=== PATIENT | female | born 1940 | race Caucasian/White ===

== ENCOUNTER 2018-04-18 01:39 | Outpatient (CLI) | payer MEDICARE, OTHER, SELFPAY ==
[2018-04-18 08:33] LABS: Anion Gap 7.5 mmol/L (3-11); BUN 23 mg/dL (7-18); CO2 29.5 mmol/L (21.0-32.0); CREATININE 0.71 mg/dL (0.55-1.02); Calcium 8.5 mg/dL (8.5-10.1); Chloride 104 mmol/L (98-107); Cholesterol 117 mg/dL (50-200); Glucose 107 mg/dL (70-100); HDL Cholesterol 72 mg/dL (40-60); LDL CHOLESTEROL 37 mg/dL (<100); Potassium 4.1 mmol/L (3.5-5.1); Sodium 141 mmol/L (136-145); Triglyceride 77 mg/dL (30-150)
== END 2018-04-18 01:59 ==
PROVIDERS: PCP Internal Medicine; Visit Provider Internal Medicine
DX: I10 Essential (primary) hypertension (principal)
CPT/HCPCS: 36415; 80048; 80061; 83721

== ENCOUNTER 2018-10-17 12:06 | Outpatient (REF) | payer MEDICARE, OTHER, SELFPAY ==
[2018-10-17 19:27] LABS: HCT 40.1 % (36.0-46.0); HGB 13.3 g/dL (12.0-15.5); Mean Corp. HGB Concentration 33.2 g/dL (32.0-36.0); Mean Corpuscular Hemoglobin 30.6 pg (27.0-33.0); Mean Corpuscular Volume 92.2 fL (80-95); Mean Platelet Volume 11.6 fL (8.0-11.0); Platelet Count 254 x1000/uL (130-400); RBC 4.35 m/cumm (4.00-5.20); RBC Distribution Width 14.8 % (11.7-14.6); White Blood Cell Count 9.98 k/cumm (4.4-10.8)
[2018-10-17 19:50] LABS: ALT 53 U/L (12-78); AST 30 U/L (15-37); Albumin 3.8 g/dL (3.4-5.0); Alkaline Phosphatase 56 U/L (46-116); Anion Gap 9.8 mmol/L (3-11); BUN 17 mg/dL (7-18); Bilirubin, Total 0.5 mg/dL (0.2-1.0); C-Reactive Protein 0.35 mg/dL (0.0-0.3); CO2 28.2 mmol/L (21.0-32.0); Calcium 9.3 mg/dL (8.5-10.1); Chloride 98 mmol/L (98-107); Glucose 103 mg/dL (70-100); Potassium 3.9 mmol/L (3.5-5.1); Sodium 136 mmol/L (136-145); TSH 3.15 uIU/mL (0.358-3.74); Total Protein 7.3 g/dL (6.4-8.2)
[2018-10-17 20:36] LABS: Vitamin B12 752 pg/mL (193-986)
[2018-10-19 14:07] LABS: ANA Interpretation Positive (NEGAT); ANA Titer Pattern 1:160 Speckled
== END 2018-10-17 12:26 ==
LOC: LBN 12:06
PROVIDERS: PCP Internal Medicine; Visit Provider Internal Medicine
DX: F41.9 Anxiety disorder, unspecified (principal); I10 Essential (primary) hypertension
CPT/HCPCS: 80053; 85027; 82607; 84443; 86038; 86140

== ENCOUNTER 2019-12-25 07:54 | Emergency (ER) | payer MEDICARE, OTHER, SELFPAY ==
--- NOTE | 2019-12-25 08:10 | NUR.NOTE ---
states does not want to come to ER---I have a appointment with Dr chani archer and I'm supposed to be checked out today'--Does not know where or what she is supposed to be doing today---after calling pcp office it was determined that she was scheduled for a stress test.---Taken to DI.Nursing Note:
--- NOTE | 2019-12-25 08:10 | NUR.NOTE ---
Nursing Note: At the request of Benjamin Shaffer RN; I called ARANZA (spoke with Criss) and the patient has an appt. with Dr. Shelton tomorrow at 12:45. She also does have a stress test scheduled for today (per CLARA Mcgraw). CLAUDIA Strickland went to take patient to when someone from came to tell her that the stress test was cancelled. Nova Diggs.
== END 2019-12-25 08:11 | disposition other institution (70) ==
LOC: ER 08:10
PROVIDERS: PCP Internal Medicine
DX: Z53.21 Procedure and treatment not carried out due to patient leaving prior to being seen by health care provider (principal)

== ENCOUNTER 2019-12-31 08:26 | Outpatient (CLI) | payer MEDICARE, OTHER, SELFPAY ==
--- NOTE | 2019-12-31 09:41 | DI.RAD_ITS ---
EXAM: XR HIP RT COMPLETE AP PELVIS CLINICAL HISTORY: RT HIP PAIN, M25.551. TECHNIQUE: 2D digital imaging was performed. COMPARISON: No exams were available for comparison FINDINGS: BONES: No acute fracture is present. No bony destructive lesion is seen. JOINTS: No dislocation present. SOFT TISSUE: Vascular calcifications are present. IMPRESSION: Unremarkable radiographs of the right hip. Unremarkable radiographs of the pelvis. DATA REPOSITORY: RADIATION DOSE DELIVERED:
== END 2019-12-31 08:46 ==
PROVIDERS: PCP Internal Medicine; Visit Provider Internal Medicine
DX: M25.551 Pain in right hip (principal)
CPT/HCPCS: 73502

== ENCOUNTER 2020-01-31 01:46 | Outpatient (CLI) | payer MEDICARE, OTHER, SELFPAY | END 2020-01-31 02:06 | PROVIDERS: PCP Internal Medicine; Visit Provider Internal Medicine | DX: M70.61 Trochanteric bursitis, right hip (principal); I10 Essential (primary) hypertension | CPT/HCPCS: 99203; 99214 ==

== ENCOUNTER 2020-02-08 01:47 | Outpatient (CLI) | payer MEDICARE, OTHER, SELFPAY ==
[2020-02-08 07:16] LABS: HCT 43.6 % (36.0-46.0); HGB 14.1 g/dL (11.2-15.7); MCH 30.2 pg (27.0-33.0); MCHC 32.3 % (32.0-36.0); MCV 93.4 fL (80-95); MPV 10.8 fL (8.0-11.0); Platelet Count 255 10^3/uL (130-400); RBC 4.67 10^6/uL (3.93-5.22); RDW 13.6 % (11.7-14.6); RDW-SD 46.8 fL
[2020-02-08 08:24] LABS: ALT 35 U/L (14-59); AST 21 U/L (15-37); Albumin 3.5 g/dL (3.4-5.0); Alkaline Phosphatase 62 U/L (46-116); Anion Gap 9.6 mmol/L (3-11); BUN 16 mg/dL (7-18); Bilirubin, Total 0.5 mg/dL (0.2-1.0); CO2 28.4 mmol/L (21.0-32.0); CREATININE 0.84 mg/dL (0.55-1.02); Calcium 9.1 mg/dL (8.5-10.1); Calculated LDL 50 mg/dL (<100); Chloride 104 mmol/L (98-107); Cholesterol 132 mg/dL (<200); Glucose 103 mg/dL (74-106); HDL Cholesterol 58 mg/dL (40-60); Potassium 3.8 mmol/L (3.5-5.1); Sodium 142 mmol/L (136-145); TSH 5.18 uIU/mL (0.36-3.74); Total Protein 7.2 g/dL (6.4-8.2); Triglyceride 122 mg/dL (<150); Vitamin B12 695 pg/mL (193-986)
[2020-02-08 08:27] LABS: ESR 40 mm/hr (0-30)
== END 2020-02-08 02:07 ==
PROVIDERS: PCP Internal Medicine; Visit Provider Internal Medicine
DX: R63.4 Abnormal weight loss (principal); E78.00 Pure hypercholesterolemia, unspecified
CPT/HCPCS: 36415; 80053; 80061; 85027; 85652; 82607; 84443

== ENCOUNTER 2020-03-06 01:28 | Outpatient (CLI) | payer MEDICARE, OTHER, SELFPAY ==
--- NOTE | 2020-03-06 | DI.MRI_ITS ---
EXAM: MR BRAIN WO CLINICAL HISTORY: NONSPECIFIC PAROXYSMAL SPELL, R40.4 TRANSIENT ALTERATION OF AWARENESS TECHNIQUE: Multiplanar multisequence MRI of the brain was performed. COMPARISON: No exams were available for comparison FINDINGS: VENTRICLES AND EXTRA AXIAL SPACES: There is global cerebral atrophy. MIDLINE SHIFT: None. CEREBRAL PARENCHYMA: No focus of restricted diffusion to suggest acute infarct. No space-occupying le anne marie identified. There are hyperintense foci in the white matter on the T2 and FLAIR images most cons istent with microvascular ischemic disease. HEMORRHAGE: None. BRAINSTEM/CEREBELLUM: Normal. CALVARIUM: Normal. VISUALIZED PARANASAL SINUSES/MASTOIDS:Clear. [place]: Normal flow void. PITUITARY GLAND: Unremarkable. OTHER FINDINGS: None. IMPRESSION: Cerebral atrophy and microvascular ischemic disease. DATA REPOSITORY:
== END 2020-03-06 01:48 ==
PROVIDERS: PCP Internal Medicine; Visit Provider Internal Medicine
DX: G31.9 Degenerative disease of nervous system, unspecified (principal); R40.4 Transient alteration of awareness
CPT/HCPCS: 70551

== ENCOUNTER 2020-10-13 12:17 | Inpatient (IN) | payer MEDICARE, OTHER, SELFPAY ==
[2020-10-13] VITALS (78 sets, daily range): BP systolic 87–153; BP diastolic 21–87; PULSE 60–135; RESP 13–44; TEMP 36.1–36.5; O2SAT 88–97
--- NOTE | 2020-10-13 12:15 | RT.EKG_ITS ---
APPROVED REPORT Exam: Resting ECG Patient Location: E HR:88 bpm ECG Measurements Heart Rate 88 AXIS DC 165 P -24 QRSd 95 QRS 92 QT 398 T 8 QTc 483 Conclusion Unknown rhythm, irregular rate...V-rate 76-125, variation>10% Right axis deviation...QRS axis ( 91,269) ST depr, consider ischemia, inferior leads...ST <-0.10mV, II III aVF Unknown rhythm. P waves visible. 2mm ST depression in V3. 1mm ST depression in II, III, aVF, V4-6. No STEMI. I have reviewed and interpreted ECG and agree with software generated interpretation.
--- NOTE | 2020-10-13 12:23 | W.ED.GENAD ---
Discharge Plan Disposition Patient Disposition: [facility] ([facility]) Condition: Stable Discharge Details Clinical Impression: NSTEMI (non-ST elevated myocardial infarction), Mass of right lung, UTI (urinary tract infection), Hypokalemia Primary Care Provider: Ibeth Shelton ED Provider: Alissa Wong Home Meds and New Rx's Prescriptions: No Action sertraline 50 mg tablet 50 mg PO DAILY Qty: 90 RF: 3 sertraline 25 mg tablet 25 mg PO DAILY Qty: 90 RF: 3 mirtazapine 15 mg tablet 15 mg PO HS PRN (Reason: depression) Qty: 90 RF: 3 calcium carbonate [Tums Ultra] 400 MG tablet,chewable 400 mg PO TID RF: 0 multivitamin [Daily Vitamin] 1 EACH tablet 1 ea PO DAILY RF: 0 hydrochlorothiazide 12.5 mg tablet 12.5 mg PO DAILY Qty: 90 RF: 3 losartan 100 mg tablet 100 mg PO DAILY Qty: 90 RF: 3 atorvastatin 40 mg tablet 40 mg PO DAILY Qty: 90 RF: 3 Medical Decision Making 1230 -- 80-year-old female with a history of breast cancer with bilateral mastectomy, hypertension, hyperlipidemia who presents from home with dizziness and fall upon standing. EKG strip per EMS was reported as a STEMI but there was no evidence of ST elevation on the strip. EKG here notes ST depression in inferior and anterior lateral leads but no obvious STEMI. No evidence of head trauma. She has no focal deficits. Lungs clear and abdomen soft and nontender. Differential diagnosis includes orthostatic hypotension, dehydration, UTI, ACS, CVA, electrolyte abnormality. Will place an IV, bolus IV fluids, screening labs, CT head and CT chest to rule out PE considering patient's history of breast cancer. Labs reviewed. Normal white blood cell count and hemoglobin. INR 1.2. Potassium 2.4. Creatinine 1.3, GFR 39. Magnesium 1.7. Troponin elevated at 0.09. Will replete potassium. Will page [facility] cardiology for recommendations for potential NSTEMI. 1400 --patient knocking on her room door and when checked on her, she is fully dressed and stating she is leaving. Patient stated I have been sitting in here 2 hours and nobody is doing anything for me . Patient has had IV and oral potassium given in edition IV fluids and been to radiology and back and I discussed that I have been in touch with [facility] cardiology and spoke to her [id number] Alissa. I advised that she stay with potential for transfer to [facility] to the potential for NSTEMI and risk of disability or and now she is agreeable to stay. CT chest notes a large right lung mass which is concerning for neoplasm. No obvious PE noted. Results discussed with patient and she is unsure if she would like to pursue treatment but is agreeable with plan for transfer to a tertiary center for NSTEMI. Discussed with [facility] transfer center and there are no beds available. 1500 --discussed with [facility] cardiology and patient excepted for transfer - accepting physician Dr. Martinez. Recommend 600 Plavix p.o. and heparin bolus but no drip. Results were discussed with patient's daughter Gill and her daughter in law Alissa. Repeat EKG notes a rate of 120. There is an improvement in the ST depression and no ST elevation noted. Shortly after this EKG, heart rate now 70s. When speaking to patient she does appear anxious and heart rate increases. Repeat troponin minimally elevated at 0.10 Medical Records Medical records reviewed: Yes I reviewed the patient's medical records. Imaging Data Radiologic Study: Radiologist's impression: CT CHEST PE CTA CLINICAL HISTORY: dizziness, r/o pe, pneumonia. TECHNIQUE: Imaging Protocol: CT angiography of the chest was performed using pulmonary embolus protocol. Multi planar reconstructions were performed. CONTRAST MATERIAL: Intravenous: Omnipaque 350 Contrast volume: 100 cc COMPARISON: No exams were available for comparison FINDINGS: CHEST: PULMONARY ARTERIES: There are no intraluminal filling defects to suggest acute pulmonary emboli. LUNGS: There is a large mass in the right lung upper lobe measuring 7.8 cm AP by 4.6 x 4.6 cm extending anteriorly from the right hilum. Smaller nodular infiltrate is seen more inferiorly in the right lung. In the opposite-left lung there is an 8 millimeter nodular infiltrate in the left upper lobe. Also smaller nodular densities in the left lower lobe. No pleural effusions on either side. No significant focal findings in the trachea. Left mainstem bronchus difficult to evaluate because of respiratory motion artifact. Go back and say there is also a nodule measuring 1.4 x 1.3 cm in the lingular segment of the left lung.. There are no pleural effusions. MEDIASTINUM: Large right hilar mass is contiguous with the right hilum. Left hilum appears unremarkable. Slightly enlarged subcarinal lymph nodes. No adenopathy in the anterior mediastinal fat. No supraclavicular adenopathy. Visualized thyroid gland is enlarged and contains multiple nodules in the right lobe. CARDIAC: Mild cardiomegaly. No pericardial effusion. Caliber thoracic aorta is within normal limits.Caliber of the thoracic aorta is within normal limits. There is no significant shift of the interventricular septum. PARTIALLY VISUALIZED UPPERMOST ABDOMEN: Can't left adrenal gland. Nonobstructive calculus left kidney. Partially included nodule in the posterior cortex of the left kidney which may be a cyst but not able to tell without complete occlusion. There appears to be a gallstone. OSSEOUS: No significant osseous lesions.. IMPRESSION: 1. No evidence of acute pulmonary emboli., there is a large right upper lobe masses described above measuring 7.8 x 4.6 x 4.6 centimeters extending from the hilum towards the anterior chest wall. Neoplastic until proven otherwise. 2. Other lung findings as above including nodular densities bilaterally, possibly metastatic. There are no pleural effusions. 3. Abdominal findings as above. CT HEAD WO CLINICAL HISTORY: dizziness, r/o acute cva. TECHNIQUE: Imaging Protocol: Axial computed tomography images with coronal and sagittal reformatted images were created and reviewed COMPARISON: MR MR BRAIN WO from 03/06/2020 FINDINGS: There are no skull fractures nor fluid in the visualized paranasal sinuses. There is no evidence of intracranial hemorrhage, mass effect, or shift of midline structures. There are no extra-axial fluid collections. The ventricles are not enlarged or shifted and there is no blood within the ventricular system nor within the basal cisterns. Abundant bilateral periventricular hypodensity is noted consistent with chronic small vessel disease. There is also a nonhemorrhagic lacunar infarct in the right caudate measuring approximately 8 x 7 millimeters. Age indeterminate. IMPRESSION: Chronic small-vessel white matter ischemic changes. Right-sided lacunar infarct as described above. If clinically indicated follow-up MRI with diffusion imaging can be performed. Called by myself to ER. Lab Data Lab results reviewed: Yes I reviewed the patient's lab results. Labs: 10/13/20 14:25 Urine - Reflex from Ua Urine Culture - Pending Laboratory Tests Range/Units 04/12/21 04/12/21 04/12/21 12:30 12:30 12:30 WBC (4.4-10.8) 10^3/uL 10.68 RBC (3.93-5.22) 10^6/uL 4.40 Hgb (11.2-15.7) g/dL 12.5 Hct (36.0-46.0) % 38.0 MCV (80-95) fL 86.4 MCH (27.0-33.0) pg 28.4 MCHC (32.0-36.0) % 32.9 RDW (11.7-14.6) % 14.6 Plt Count (130-400) 10^3/uL 296 MPV (8.0-11.0) fL 10.6 Immature Gran % 0.5 Neutrophils % 74.9 Lymphocytes % 11.5 Monocytes % 9.7 Eosinophils % 2.7 Basophils % 0.7 Nucleated RBC % % 0 Absolute Neutrophils (1.2-6.7) 10^3/uL 8.00 H Absolute Lymphocytes (1.2-3.4) 10^3/uL 1.23 Absolute Monocytes (0.1-0.8) 10^3/uL 1.04 H Absolute Eosinophils (0.0-0.7) 10^3/uL 0.29 Absolute Basophils (0.0-0.2) 10^3/uL 0.07 PT (9.3-11.0) sec 11.6 H INR (0.9-1.1) 1.2 H APTT (21.0-27.5) sec 23.6 Sodium (136-145) mmol/L 140 Potassium (3.5-5.1) mmol/L 2.4 L* Chloride (98-107) mmol/L 99 Carbon Dioxide (21.0-32.0) mmol/L 29.2 Anion Gap (3-11) mmol/L 11.8 H BUN (7-18) mg/dL 31 H Creatinine (0.55-1.02) mg/dL 1.3 H Estimated GFR/1.73 m2 (mL/min/1.73m2) 39.31 Glucose (74-106) mg/dL 140 H Calcium (8.5-10.1) mg/dL 8.6 Magnesium (1.8-2.4) mg/dL 1.7 L Total Bilirubin (0.2-1.0) mg/dL 0.5 AST (15-37) U/L 33 ALT (14-59) U/L 26 Alkaline Phosphatase (46-116) U/L 68 Troponin I (<0.06) ng/mL 0.09 H* Total Protein (6.4-8.2) g/dL 7.9 Albumin (3.4-5.0) g/dL 2.7 L Urine Color (Yellow) Urine Clarity (Clear) Urine pH (5-8) Ur Specific Dorena (1.005-1.025) Urine Protein (Negative) mg/dL Urine Ketones (Negative) mg/dL Urine Blood (Negative) Urine Nitrite (Negative) Urine Bilirubin (Negative) Urine Urobilinogen (Up TO 0.2) EU/dL Ur Leukocyte Esterase (Negative) Urine RBC (0-2) HPF Urine WBC (0-5) HPF Ur Epithelial Cells (Negative) HPF Urine Crystals (Negative) HPF Urine Bacteria (Negative) HPF Urine Casts (Negative) LPF Urine Mucus (Negative) Urine Other (Negative) Ur Culture Indicated? Urine Glucose (Negative) mg/dL Range/Units 10/13/20 14:25 WBC (4.4-10.8) 10^3/uL RBC (3.93-5.22) 10^6/uL Hgb (11.2-15.7) g/dL Hct (36.0-46.0) % MCV (80-95) fL MCH (27.0-33.0) pg MCHC (32.0-36.0) % RDW (11.7-14.6) % Plt Count (130-400) 10^3/uL MPV (8.0-11.0) fL Immature Gran % Neutrophils % Lymphocytes % Monocytes % Eosinophils % Basophils % Nucleated RBC % % Absolute Neutrophils (1.2-6.7) 10^3/uL Absolute Lymphocytes (1.2-3.4) 10^3/uL Absolute Monocytes (0.1-0.8) 10^3/uL Absolute Eosinophils (0.0-0.7) 10^3/uL Absolute Basophils (0.0-0.2) 10^3/uL PT (9.3-11.0) sec INR (0.9-1.1) APTT (21.0-27.5) sec Sodium (136-145) mmol/L Potassium (3.5-5.1) mmol/L Chloride (98-107) mmol/L Carbon Dioxide (21.0-32.0) mmol/L Anion Gap (3-11) mmol/L BUN (7-18) mg/dL Creatinine (0.55-1.02) mg/dL Estimated GFR/1.73 m2 (mL/min/1.73m2) Glucose (74-106) mg/dL Calcium (8.5-10.1) mg/dL Magnesium (1.8-2.4) mg/dL Total Bilirubin (0.2-1.0) mg/dL AST (15-37) U/L ALT (14-59) U/L Alkaline Phosphatase (46-116) U/L Troponin I (<0.06) ng/mL Total Protein (6.4-8.2) g/dL Albumin (3.4-5.0) g/dL Urine Color (Yellow) Yellow Urine Clarity (Clear) Clear Urine pH (5-8) 7.0 Ur Specific Dorena (1.005-1.025) 1.015 Urine Protein (Negative) mg/dL Negative Urine Ketones (Negative) mg/dL Negative Urine Blood (Negative) Trace-intact H Urine Nitrite (Negative) Negative Urine Bilirubin (Negative) Negative Urine Urobilinogen (Up TO 0.2) EU/dL 0.2 Ur Leukocyte Esterase (Negative) Negative Urine RBC (0-2) HPF 3-5 H Urine WBC (0-5) HPF 20-50 H Ur Epithelial Cells (Negative) HPF Few Urine Crystals (Negative) HPF Negative Urine Bacteria (Negative) HPF Few Urine Casts (Negative) LPF Negative Urine Mucus (Negative) Negative Urine Other (Negative) Few transitional Ur Culture Indicated? Yes Urine Glucose (Negative) mg/dL Negative ECG Data Attestation: I personally reviewed and interpreted this ECG (s) as follows: Interpretation: #1 --Rate of 88, irregular, some P waves visible. Unknown rhythm. There is [address] depression in 2, 3, aVF, V4, V5 and V6. There is [address] depression in V3. There is questionable [address] elevation in V2 but no obvious STEMI. [place] 165. QRS 95. QTc 483. #2 --Rate of 120, sinus, [address] depression in 2, 3, aVF, V3 through V6. No ST elevation. [place] 206. QRS 90. QTc 526. HPI General Mode of arrival: EMS. Date/Time Provider Initiated Documentation: 10/13/20 12:26. Limitations to Documentation: no limitations. Information obtained by: patient. HPI Narrative: Patient is a 80-year-old female with a history of breast cancer with bilateral mastectomy, hypertension, hyperlipidemia who presents to the ED from home after an episode of dizziness and near syncope upon standing resulting in a fall. Patient states she stood up from her rocking chair at home and felt dizziness with spinning sensation and her legs gave out and she fell to the ground. She states her head hit a stool but she denies any LOC, headache, neck pain, nausea, vomiting, chest pain, shortness of breath, abdominal pain, back pain, extremity pain or urinary symptoms. She states she had diarrhea lasting a few days within the past week but states this is since resolved and she has had formed stool since then. She states she feels she is staying hydrated but states her daughter feels that she is not as hydrated as she should be. She denies any pain due to the fall today. She currently denies any symptoms. Related Data Home Medications Medication Instructions Recorded Confirmed calcium carbonate [Tums Ultra] 400 mg PO TID tab.chew 10/17/13 10/13/20 multivitamin [Daily Vitamin] 1 ea PO DAILY 05/06/14 10/13/20 atorvastatin 40 mg tablet 40 mg PO DAILY #90 tab-cap 08/26/20 10/13/20 hydrochlorothiazide 12.5 mg tablet 12.5 mg PO DAILY #90 tab 08/26/20 10/13/20 losartan 100 mg tablet 100 mg PO DAILY #90 tab 08/26/20 10/13/20 mirtazapine 15 mg tablet 15 mg PO HS PRN #90 tab 09/17/20 10/13/20 sertraline 25 mg tablet 25 mg PO DAILY #90 tab 09/17/20 10/13/20 sertraline 50 mg tablet 50 mg PO DAILY #90 tab 09/17/20 10/13/20 Previous Rx's Medication Instructions Recorded atorvastatin 40 mg tablet 40 mg PO DAILY #90 tab-cap 08/26/20 hydrochlorothiazide 12.5 mg tablet 12.5 mg PO DAILY #90 tab 08/26/20 losartan 100 mg tablet 100 mg PO DAILY #90 tab 08/26/20 mirtazapine 15 mg tablet 15 mg PO HS PRN #90 tab 09/17/20 sertraline 25 mg tablet 25 mg PO DAILY #90 tab 09/17/20 sertraline 50 mg tablet 50 mg PO DAILY #90 tab 09/17/20 Allergies Allergy/AdvReac Type Severity Reaction Status Date / Time morphine AdvReac Mild Nausea, Verified 10/13/20 12:26 fainting Review of Systems All systems reviewed & are unremarkable except as noted in HPI and below Constitutional Constitutional: Reports as per HPI, Denies chills, Denies fever(s) and Reports weakness Eyes Eyes: Denies blurry vision ENT Ears, Nose, Mouth, and Throat: Reports dizziness, Denies sore throat and Denies throat swelling Cardiovascular Cardiovascular: Denies chest pain and Denies dyspnea Respiratory Respiratory: Denies cough and Denies dyspnea Gastrointestinal Gastrointestinal: Denies abdominal pain, Denies diarrhea and Denies vomiting Genitourinary Genitourinary: Denies hematuria and Denies dysuria Musculoskeletal Musculoskeletal: Denies back pain and Denies numbness Integumentary/Breasts Skin/Breast: Denies lesions and Denies rash Neurologic Neurologic: Reports dizziness, Denies localized weakness, Denies numbness and Reports weakness Allergic/Immunologic Allergic/Immunologic: Denies throat swelling [facility] Medical History (Updated 10/13/20 @ 15:35 by Alissa Wong DO) Abnormal mammogram with microcalcification (06/07/17) 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 Hsu 07/14/17 + for estrogen receptors, + fopr progesterone recpetors [facility] [place] cardiac risk >20% in next 10 years Greater trochanteric bursitis of right hip Herpes zoster (10/17/13) Hypertension Osteoporosis Rhytidosis facialis Skin neoplasm Venous insufficiency Surgical History (Updated 04/19/18 @ 14:36 by [employer] [place]) breast lumptectomy (~1997) Breast, Mastectomy Bilateral (07/14/17) Colonoscopy - IV Sedation (01/28/14) Extraction of cataract (12/05/17) cataract extraction right eye w/ lens implant. Dr. Virk. 12/05/17 Dr. Buddy Left eye cataract extraction w lens implant [facility] Revision, Scar (09/22/17) left mastectomy scar revision Family History Mother , CHF Diabetes Heart disease Stroke Father , suicide at age 42. No problems noted. Sister Diabetes Heart disease Sister , hepatic cancer Hepatic cancer Diabetes Sister Diabetes Essential hypertension Heart disease Hyperlipidemia Sister Stroke Sister No problems noted. Brother No problems noted. Social History Smoking/Tobacco Use Status: Former Tobacco Use Tobacco: How many years used: 42 Smoking risk assessment performed?: Yes Alcohol Intake: never Drug use: Never Substance use type: does not use Housing: house Number of Children: 2 Communication Needs: Corrective Lenses What is your relationship status?: How often do you talk on the phone with friends or family?: three or more times per week Panel score (0-1 are the most socially isolated patients): 1 What type of physical activity do you participate in: none Seatbelt use: always Drive intox or ride w/intox backhaul driver: No Working smoke detector in home: Yes Carbon monox detector in home: Yes Do you feel safe at home: Yes Do you feel safe in your relationship?: Yes Exam Const General: cooperative and no acute distress HENMT Head: normal to inspection Ears: hearing grossly normal bilaterally, external ears normal and TM's normal bilaterally Face and sinus: normal facial exam Mouth: moist mucous membranes Eyes General: appearance normal, both eyes and all related structures Pupils: PERRL EOM: EOM intact bilaterally Neck Neck: normal visual inspection and No submandibular swelling Lymphatic: no lymphadenopathy noted Chest Chest: normal inspection of the chest and no tenderness Resp Effort & Inspection: normal respiratory effort and able to speak in complete sentences Auscultation: clear to auscultation bilaterally Cardio Rate: regular rate Rhythm: regular rhythm GI Inspection: normal to inspection Palpation: soft, not firm, not rigid and nontender Auscultation: normal bowel sounds Back/Spine/Pelvis Cervical Spine: No cervical spinal tenderness Thoracic/Lumbar Spine: thoracic and lumbar spine normal to inspection, No thoracic spinal tenderness and No lumbar spinal tenderness Pelvis: no pain with anterior-posterior compression Skin General skin exam: no rashes or lesions noted Neuro General: patient alert, patient awake, patient oriented x3, moves all extremities, no meningeal signs and no focal motor deficits Cranial Nerves: CN's II-XI intact bilaterally Cognition: normal cognition Speech: speech normal Motor: muscle tone normal throughout and strength 5/5 throughout Sensory Exam: no sensory deficits noted Extrem General: normal to inspection, full ROM, capillary refill normal, no calf tenderness bilaterally and no edema Psych Appearance: grossly normal Mental Status: mental status grossly normal Speech and Movement: speech and movement normal Affect: normal affect
--- NOTE | 2020-10-13 12:30 | DI.CT_ITS ---
EXAM: CT HEAD WO CLINICAL HISTORY: dizziness, r/o acute cva. TECHNIQUE: Imaging Protocol: Axial computed tomography images with coronal and sagittal reformatted images were created and reviewed COMPARISON: MR MR BRAIN WO from 03/06/2020 FINDINGS: There are no skull fractures nor fluid in the visualized paranasal sinuses. There is no evidence of intracranial hemorrhage, mass effect, or shift of midline structures. There are no extra-axial fluid collections. The ventricles are not enlarged or shifted and there is no blo od within the ventricular system nor within the basal cisterns. Abundant bilateral periventricular hypodensity is noted consistent with chronic small vessel disease. There is also a nonhemorrhagic lacunar infarct in the right caudate measuring approximately 8 x 7 m illimeters. Age indeterminate. IMPRESSION: Chronic small-vessel white matter ischemic changes. Right-sided lacunar infarct as described above. If clinically indicated follow-up MRI with diffusion imaging can be performed. Called by myself to ER. RADIATION DOSE DELIVERED: 655.98mGy.cm Total DLP DATA REPOSITORY: All CT scans at this facility are submitted to the National Radiology Data Registry (NRDR) Dose Index Registry (DIR) with the [employer] (A[employer]). RADIATION OPTIMIZATION: All CT scans at this facility use at least one of these dose optimization te chniques: automated exposure control; mA and/or kV adjustment per patient size (includes targeted exa ms where dose is matched to clinical indication); or iterative reconstruction.
--- NOTE | 2020-10-13 12:30 | DI.CT_ITS ---
EXAM: CT CHEST PE CTA CLINICAL HISTORY: dizziness, r/o pe, pneumonia. TECHNIQUE: Imaging Protocol: CT angiography of the chest was performed using pulmonary embolus chanda col. Multi planar reconstructions were performed. CONTRAST MATERIAL: Intravenous: Omnipaque 350 Contrast volume: 100 cc COMPARISON: No exams were available for comparison FINDINGS: CHEST: PULMONARY ARTERIES: There are no intraluminal filling defects to suggest acute pulmonary emboli. LUNGS: There is a large mass in the right lung upper lobe measuring 7.8 cm AP by 4.6 x 4.6 cm extendi ng anteriorly from the right hilum. Smaller nodular infiltrate is seen more inferiorly in the right lung. In the opposite-left lung there is an 8 millimeter nodular infiltrate in the left upper lobe. Also smaller nodular densities in the left lower lobe. No pleural effusions on either side. No sig nificant focal findings in the trachea. Left mainstem bronchus difficult to evaluate because of resp iratory motion artifact. Go back and say there is also a nodule measuring 1.4 x 1.3 cm in the lingul ar segment of the left lung.. There are no pleural effusions. MEDIASTINUM: Large right hilar mass is contiguous with the right hilum. Left hilum appears unremarka ble. Slightly enlarged subcarinal lymph nodes. No adenopathy in the anterior mediastinal fat. No s upraclavicular adenopathy. Visualized thyroid gland is enlarged and contains multiple nodules in the right lobe. CARDIAC: Mild cardiomegaly. No pericardial effusion. Caliber thoracic aorta is within normal limits .Caliber of the thoracic aorta is within normal limits. There is no significant shift of the interve ntricular septum. PARTIALLY VISUALIZED UPPERMOST ABDOMEN: Can't left adrenal gland. Nonobstructive calculus left kidne y. Partially included nodule in the posterior cortex of the left kidney which may be a cyst but not able to tell without complete occlusion. There appears to be a gallstone. OSSEOUS: No significant osseous lesions.. IMPRESSION: 1. No evidence of acute pulmonary emboli., there is a large right upper lobe masses described above m easuring 7.8 x 4.6 x 4.6 centimeters extending from the hilum towards the anterior chest wall. Neopl astic until proven otherwise. 2. Other lung findings as above including nodular densities bilaterally, possibly metastatic. There are no pleural effusions. 3. Abdominal findings as above. Report called by myself to ER provider. RADIATION DOSE DELIVERED: 415.6mGy.cm Total DLP DATA REPOSITORY: All CT scans at this facility are submitted to the National Radiology Data Registry (NRDR) Dose Index Registry (DIR) with the [employer] (A[employer]). RADIATION OPTIMIZATION: All CT scans at this facility use at least one of these dose optimization te chniques: automated exposure control; mA and/or kV adjustment per patient size (includes targeted exa ms where dose is matched to clinical indication); or iterative reconstruction.
[2020-10-13 12:37] LABS: Abs Immature Grans 0.05 10^3/uL (0.0-0.06); Absolute Basophil Count 0.07 10^3/uL (0.0-0.2); Absolute Eosinophil Count 0.29 10^3/uL (0.0-0.7); Absolute Lymphocyte Count 1.23 10^3/uL (1.2-3.4); Absolute Monocyte Count 1.04 10^3/uL (0.1-0.8); Basophils % 0.7; Eosinophils % 2.7; HGB 12.5 g/dL (11.2-15.7); Immature Grans % 0.5; Lymphocytes % 11.5; MCH 28.4 pg (27.0-33.0); MCHC 32.9 % (32.0-36.0); MCV 86.4 fL (80-95); MPV 10.6 fL (8.0-11.0); Monocytes % 9.7; Neutrophils % 74.9; Nucleated RBC 0 %; Platelet Count 296 10^3/uL (130-400); RDW 14.6 % (11.7-14.6); RDW-SD 47.1 fL; WBC 10.68 10^3/uL (4.4-10.8)
[2020-10-13 12:51] LABS: INR 1.2 (0.9-1.1); PTT Activated 23.6 sec (21.0-27.5); Prothrombin Time 11.6 sec (9.3-11.0)
[2020-10-13 12:54] LABS: ALT 26 U/L (14-59); AST 33 U/L (15-37); Albumin 2.7 g/dL (3.4-5.0); Alkaline Phosphatase 68 U/L (46-116); Anion Gap 11.8 mmol/L (3-11); BUN 31 mg/dL (7-18); Bilirubin, Total 0.5 mg/dL (0.2-1.0); CO2 29.2 mmol/L (21.0-32.0); CREATININE 1.3 mg/dL (0.55-1.02); Calcium 8.6 mg/dL (8.5-10.1); Chloride 99 mmol/L (98-107); Estimated GFR 39.31 (mL/min/1.73m2); Glucose 140 mg/dL (74-106); Magnesium 1.7 mg/dL (1.8-2.4); Sodium 140 mmol/L (136-145); Total Protein 7.9 g/dL (6.4-8.2)
[2020-10-13 12:57] LABS: Potassium 2.4 mmol/L (3.5-5.1); Troponin I 0.09 ng/mL (<0.06)
[2020-10-13] MEDS: Normal Saline 500 ML IV (13:15)
[2020-10-13] MEDS: POTASSIUM CHLORIDE 20 MEQ/100 ML BAG 50 MEQ IVPB ×2 (13:20→22:49)
[2020-10-13] MEDS: Potassium Chloride 20 MEQ TABCR 40 MEQ PO ×2 (13:21→22:52)
[2020-10-13] MEDS: Omnipaque 350 MG/ML 100 ML BTL IJ (13:44)
[2020-10-13] MEDS: Normal Saline Flush 10 ML SYR IVP (13:45)
[2020-10-13] MEDS: Aspirin 325 MG TAB PO (14:15)
[2020-10-13 14:36] LABS: Bilirubin Negative (Negative); Blood Trace-intact (Negative); Clarity Clear (Clear); Glucose Negative (Negative); Ketones Negative (Negative); Leukocyte Esterase Negative (Negative); Nitrite Negative (Negative); Specific Gravity 1.015 (1.005-1.025); Urobilinogen 0.2 EU/dL (Up TO 0.2)
[2020-10-13 14:53] LABS: Epithelial Cells Few HPF (Negative); WBC 20-50 HPF (0-5)
[2020-10-13 14:54] LABS: Bacteria Few HPF (Negative); C & S Indicated? Yes; Casts Negative LPF (Negative); Crystals Negative HPF (Negative); Mucus Negative (Negative); Other Cells Few Transitional (Negative)
--- NOTE | 2020-10-13 15:00 | RT.EKG_ITS ---
APPROVED REPORT Exam: Resting ECG Patient Location: E HR:120 bpm ECG Measurements Heart Rate 120 AXIS PA 206 P 179 QRSd 90 QRS 93 QT 372 T 14 QTc 526 Conclusion Sinus or ectopic atrial tachycardia...P axis (-45,135), rate> 99 Right axis deviation...QRS axis ( 91,269) ST depr, consider ischemia, inferior leads...ST <-0.10mV, II III aVF Prolonged QT interval...QTc >500mS. No STEMI. I have reviewed and interpreted ECG and agree with software generated interpretation.
--- NOTE | 2020-10-13 15:04 | NUR.NOTE ---
Nursing Note: Alissa (daughter in law) POA [phone]. Alissa also states that daughter Gill is also POA. Nova Diggs
[2020-10-13] MEDS: Heparin 5,000 UNITS/ML VIAL 4000 UNITS IV (15:40)
[2020-10-13] MEDS: Clopidogrel 300 MG TAB 600 MG PO (15:43)
[2020-10-13] MEDS: cefTRIAXone 1 GM/50 ML BAG IVPB (15:59)
[2020-10-13] MEDS: MAGNESIUM SULFATE 1 GM/100 ML BAG IVPB (16:01)
--- NOTE | 2020-10-13 17:43 | HPE_ITS ---
Date of service: 10/13/20 Time of Service: 17:43 Assessment and Plan Assessment and plan (1) NSTEMI (non-ST elevated myocardial infarction): Status: Acute Assessment and plan: I would rate this as probable NSTEMI at this point but the lack of CP, lack of prior EKG (or trop) and relatively flat trop trend could indicate this as baseline; will trend out trops and continue current program for now (will initiate heparin qtt per standard, apparently this was held in anticipation of transfer). Pyuria: continue Rocephin pending cxx Electrolytes: replace and track Lung mass: presumably CA in this former smoker. As above declines w/u at present ADs: Reviewed ADs, requests DNR History of Present Illness History of Present Illness Chief Complaint: dizziness Narrative: 80 female reports she has felt some vertigo like dizziness over past week, spinning sensation with head movements, and had a fall today when standing up. No LOC. EMS reported STEMI but in ER no such findings, but some inferolateral ST depressions were noted, along with trop 0.09. Note patient has had no CP or SOB. Trop #2 is 0.10. Case reviewed with [facility] who had provisionally accepted for transfer. Patient has received DAPT and heparin bolus ([facility] requested hold on drip). However [facility] has since stated they would not need to have patient transferred and requests she stay overnight. Other findings entail a large mass in right lung (patient declines work up), pyuria, hypokalemia and hypomagnesemia. Has received Rocephin and K/Mg replacement. Is admitted for further management. Says she feels entirely well at present. 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 Hsu 07/14/17 + for estrogen receptors, + fopr progesterone recpetors RH [place] cardiac risk >20% in next 10 years Greater trochanteric bursitis of right hip Herpes zoster (10/17/13) Hypertension Osteoporosis Rhytidosis facialis Skin neoplasm Venous insufficiency Surgical History breast lumptectomy (~1997) Breast, Mastectomy Bilateral (07/14/17) Colonoscopy - IV Sedation (01/28/14) Extraction of cataract (12/05/17) cataract extraction right eye w/ lens implant. Dr. Goodwin. 12/05/17 Dr. Goodwin Left eye cataract extraction w lens implant RH Revision, Scar (09/22/17) left mastectomy scar revision Family History Mother , CHF Diabetes Heart disease Stroke Father , suicide at age 42. No problems noted. Sister Diabetes Heart disease Sister , hepatic cancer Hepatic cancer Diabetes Sister Diabetes Essential hypertension Heart disease Hyperlipidemia Sister Stroke Sister No problems noted. Brother No problems noted. Social History Smoking/Tobacco Use Status: Former Tobacco Use Tobacco: How many years used: 42 Smoking risk assessment performed?: Yes Alcohol Intake: never Drug use: Never Substance use type: does not use Housing: house Number of Children: 2 Communication Needs: Corrective Lenses What is your relationship status?: How often do you talk on the phone with friends or family?: three or more times per week Panel score (0-1 are the most socially isolated patients): 1 What type of physical activity do you participate in: none Seatbelt use: always Drive intox or ride w/intox customer service driver: No Working smoke detector in home: Yes Carbon monox detector in home: Yes Do you feel safe at home: Yes Do you feel safe in your relationship?: Yes Meds Allergies and Home Medications Allergies Allergy/AdvReac Type Severity Reaction Status Date / Time morphine AdvReac Mild Nausea, Verified 10/13/20 12:26 fainting Home Medications Medication Instructions Recorded Confirmed Type calcium carbonate [Tums Ultra] 400 mg PO TID tab.chew 10/17/13 10/13/20 History multivitamin [Daily Vitamin] 1 ea PO DAILY 05/06/14 10/13/20 History atorvastatin 40 mg tablet 40 mg PO DAILY #90 tab-cap 08/26/20 10/13/20 Rx hydrochlorothiazide 12.5 mg tablet 12.5 mg PO DAILY #90 tab 08/26/20 10/13/20 Rx losartan 100 mg tablet 100 mg PO DAILY #90 tab 08/26/20 10/13/20 Rx mirtazapine 15 mg tablet 15 mg PO HS PRN #90 tab 09/17/20 10/13/20 Rx sertraline 25 mg tablet 25 mg PO DAILY #90 tab 09/17/20 10/13/20 Rx sertraline 50 mg tablet 50 mg PO DAILY #90 tab 09/17/20 10/13/20 Rx Exam Narrative Exam Narrative: 153/77, 71, 36.5, 13-27, 93% RA. HEENT atraumatic; neck supple; lungs clear; heart occ ectopic, 2/6 sys murmur LUSB with post extrasystolic augmentation; abdomen soft and NT; extremities w/o edema; neuro Ox3, moves all 4s Results Labs Result diagrams: 10/13/20 12:30 10/13/20 12:30 Labs: Laboratory Results - last 24 hr 10/13/20 10/13/20 10/13/20 12:30 12:30 12:30 WBC 10.68 RBC 4.40 Hgb 12.5 Hct 38.0 MCV 86.4 MCH 28.4 MCHC 32.9 RDW 14.6 Plt Count 296 MPV 10.6 Immature Gran % 0.5 Neutrophils % 74.9 Lymphocytes % 11.5 Monocytes % 9.7 Eosinophils % 2.7 Basophils % 0.7 Nucleated RBC % 0 Absolute Neutrophils 8.00 H Absolute Lymphocytes 1.23 Absolute Monocytes 1.04 H Absolute Eosinophils 0.29 Absolute Basophils 0.07 PT 11.6 H INR 1.2 H APTT 23.6 Sodium 140 Potassium 2.4 L* Chloride 99 Carbon Dioxide 29.2 Anion Gap 11.8 H BUN 31 H Creatinine 1.3 H Estimated GFR/1.73 m2 39.31 Glucose 140 H Calcium 8.6 Magnesium 1.7 L Total Bilirubin 0.5 AST 33 ALT 26 Alkaline Phosphatase 68 Troponin I 0.09 H* Total Protein 7.9 Albumin 2.7 L Urine Color Urine Clarity Urine pH Ur Specific [place] Urine Protein Urine Ketones Urine Blood Urine Nitrite Urine Bilirubin Urine Urobilinogen Ur Leukocyte Esterase Urine RBC Urine WBC Ur Epithelial Cells Urine Crystals Urine Bacteria Urine Casts Urine Mucus Urine Other Ur Culture Indicated? Urine Glucose 10/13/20 10/13/20 14:25 15:35 WBC RBC Hgb Hct MCV MCH MCHC RDW Plt Count MPV Immature Gran % Neutrophils % Lymphocytes % Monocytes % Eosinophils % Basophils % Nucleated RBC % Absolute Neutrophils Absolute Lymphocytes Absolute Monocytes Absolute Eosinophils Absolute Basophils PT INR APTT Sodium Potassium Chloride Carbon Dioxide Anion Gap BUN Creatinine Estimated GFR/1.73 m2 Glucose Calcium Magnesium Total Bilirubin AST ALT Alkaline Phosphatase Troponin I 0.10 H* Total Protein Albumin Urine Color Yellow Urine Clarity Clear Urine pH 7.0 Ur Specific [place] 1.015 Urine Protein Negative Urine Ketones Negative Urine Blood Trace-intact H Urine Nitrite Negative Urine Bilirubin Negative Urine Urobilinogen 0.2 Ur Leukocyte Esterase Negative Urine RBC 3-5 H Urine WBC 20-50 H Ur Epithelial Cells Few Urine Crystals Negative Urine Bacteria Few Urine Casts Negative Urine Mucus Negative Urine Other Few transitional Ur Culture Indicated? Yes Urine Glucose Negative Last Vital Signs Temp 36.5 C 10/13/20 12:18 Pulse 71 10/13/20 16:45 Resp 27 H 10/13/20 16:50 BP 153/77 H 10/13/20 16:45 Pulse Ox 93 10/13/20 16:50 COVID-19 Screening Have you, or household traveled for leisure in last 14 days?: No Had IN PERSON contact w/suspected or confirmed C-19 person: No
[2020-10-13 19:42] LABS: Source Nasal/Nares
[2020-10-13 21:35] LABS: COVID-19 PCR Negative (Negative)
[2020-10-13 21:36] LABS: Potassium 2.8 mmol/L (3.5-5.1)
[2020-10-14] VITALS (17 sets, daily range): BP systolic 118–154; BP diastolic 58–90; PULSE 73–123; RESP 20–30; TEMP 36–36.6; O2SAT 92–97
--- NOTE | 2020-10-14 | DI.US_ITS ---
APPROVED REPORT EXAM: Comprehensive 2D, Doppler, and color-flow Echocardiogram Patient Location: In-Patient Room/Bed: [id number] Manager Mass: Carey Beyer RDCS (AE) Indications: NSTEMI Other Information Study Quality: Adequate. Technically limited study due to body habitus, inability to position patient . Conclusion Normal left ventricular wall thickness and chamber size. Estimated ejection fraction is 55 to 60%. There are no segmental wall motion abnormalities Right ventricle appears normal in size. In parasternal views there is a possible mass noted in the r ight ventricle. This is not seen in the apical views and may be artifact related to the patient's kn own lung mass. Right ventricular systolic function appears normal The left atrium is not well visualized. The right atrium is normal in size Trileaflet aortic valve with trace regurgitation Mild mitral annular calcification, mild mitral regurgitation Normal tricuspid valve with moderate regurgitation. Estimated right ventricular systolic pressure is 65 mmHg, moderate to severe pulmonary hypertension Normal pulmonic valve with trace regurgitation Wall motion Left Ventricle The left ventricle is normal size. The left ventricular systolic function is normal. The left ventric ular ejection fraction is within the normal range. There is normal left ventricular wall thickness. T here is normal LV segmental wall motion. There is no ventricular septal defect visualized. LVEF is 55 -60%. Right Ventricle The right ventricle is normal size. The right ventricular systolic function is normal. The RVSP is 65 .0mmHg. On parasternal views there appears to be a mass in the right ventricle This is not seen in th e apical views and may be artifact, possibly related to the patient's known lung mass Atria Left atrium is not well visualized. The right atrium size is normal. The interatrial septum is intact with no evidence for an atrial septal defect. Aortic Valve The Aortic valve is sclerotic. Aortic valve is trileaflet. There is no aortic valvular stenosis. Tra ce aortic regurgitation. Mitral Valve Mild mitral annular calcification. No evidence of mitral valve stenosis. Mild mitral regurgitation. Tricuspid Valve The tricuspid valve is normal in structure. There is no tricuspid valve stenosis. Moderate tricuspid regurgitation. Pulmonic Valve The pulmonary valve is normal in structure. There is no pulmonic valvular stenosis. Trace pulmonic re gurgitation. Great Vessels The aortic root is normal in size. The ascending aorta is normal in size. Aortic arch is not well vis ualized. IVC is normal in size and collapses >50% with inspiration. Pericardium There is no pericardial effusion. 2D Dimensions IVSD d PLAX 0.76 cm F: 0.6-1.0 LV Vol A2C d MOD 71.1 mL LVPW d PLAX 0.76 cm F: 0.6 - 1.0 LV Vol A4C d MOD 70.8 mL LVID d PLAX 3.75 cm F: 3.8 - 5.2 LA vol/ BSA A2C s A-L 19.0 mL/m2 LVDs 2.75 cm F: 2.2 - 3.5 LA vol/ BSA A4C s A-L 17.1 mL/m2 Ao Root d 2.70 cm F: 2.7 - 3.3 LA Vol/ BSA Biplane s A-L 19.4 mL/m2 RA Area A4C 13.36 cm2 LA Area A4C s MOD 13.65 cm2 RA Vol/ BSA A4C s A-L 19.7 mL/m2 LA Area A2C s MOD 13.35 cm2 Ao Asc Diam d 3.08 cm F: 2.3 - 3.1 LV EF A4C MOD 52.1 % LV EF Teichholz 51.7 % LV EF A2C MOD 53.3 % LVEF (Ramirez's) 51.07 % F: 54 - 74 LV EF Biplane MOD 51.1 % LV Volume 56.62 mL F: 46 - 106 SV 36.87 mL LV Volume Index 32.17 mL/m2 F: 29 - 61 SV Index 20.96 mL/m2 LV Vol Biplane MOD 72.2 mL FS 25.90 % M-Mode TAPSE 1.49 cm (M/F) >1.7 LV Diastology MV E' medial 0.072 (>0.07 m/s) E/A Ratio 0.6 LV E/e MED 7.95 (<14) MV E Vmax 0.58 (0.4-1.3 m/s) MV E' lateral 0.057 (>0.1 m/s) MV A Vmax 0.90 (0.4-1.3 m/s) LV E/e LAT 10.15 (<14) MV E/A Ratio 0.63 MV E/E' medial 7.96 MV E/E' lateral 10.15 Aortic Valve LVOT Area 2.52 cm2 AoV Area Vmax 1.89 cm2 LVOT Vmax 1.33 m/s AoV Area/ BSA (Vmax) 1.07 cm2/m2 LVOT Mean Yanick. 0.76 m/s GÉNESIS Mean Yanick. 1.52 cm2 LVOT Peak Grad 7.1 mmHg GÉNESIS Mean [place]ick. Index 0.86 cm2/m2 LVOT Mean Grad 2.9 mmHg LVOT VTI 0.207 m LVOT Diam s 1.75 cm AoV Vmax 1.77 m/s Velocity Ratio 0.75 AoV Mean Yanick. 1.27 m/s AoV Peak Grad 12.6 mmHg LVOT SV 52.24 mL AoV Mean Grad 7.2 mmHg AoV VTI 0.287 m AoV Area VTI 1.82 cm2 AoV Area/ BSA (VTI) 1.04 cm/m2 Mitral Valve MV DT 323 (160-240 msec) MR Vmax 4.33 m/s MV PHT 94 msec MR VTI 1.117 m MV Area PHT 2.35 cm2 MR Peak Grad 74.9 mmHg MV VTI 0.220 m MR Mean Grad 53.7 mmHg MV VTI Annulus 0.215 m MR PISA Radius 0.62 cm MV Area VTI 2.34 (4.0-6.0 cm2) MR EROA 0.20 cm2 MR Aliasing Velocity 0.35 m/s MR PISA 2.44 cm2 Pulmonary Valve PV Vmax 2.44 (0.5-1.5 m/s) RVOT Peak Gr. 22.78 mmHg PV Peak Grad 23.8 mmHg RVOT Mean Gr. 12.75 mmHg PV Mean Grad 13.9 mmHg RVOT VTI 0.515 m PV VTI 0.466 m RVOT Vmax 2.39 m/s Tricuspid Valve TR Peak Grad 61.9 mmHg TR Vmax 3.94 m/s RA Pressure 3.00 mmHg RVSP (TR) 65.0 mmHg
--- NOTE | 2020-10-14 | DI.RAD_ITS ---
EXAM: XR PORTABLE CHEST AP CLINICAL HISTORY: aspiration event TECHNIQUE: 2D digital imaging was performed. COMPARISON: CT CT CHEST PE CTA from 10/13/2020 FINDINGS: MEDIASTINUM: Normal. HEART: Normal. PULMONARY VASCULATURE: Normal. LUNGS: The right middle lobe opacity is unchanged. No new pulmonary infiltrates are seen. PLEURAL SPACE: No pleural effusion or pneumothorax. BONE:Within normal limits for the patient's age. OTHER FINDINGS:Normal. IMPRESSION: 1. Stable right middle lobe opacity. Neoplasm should be considered. 2. No new pulmonary infiltrates. DATA REPOSITORY: RADIATION DOSE DELIVERED:
[2020-10-14 03:03] LABS: PTT Activated 63.9 sec (21.0-27.5)
[2020-10-14 07:24] LABS: Troponin I 0.11 ng/mL (<0.06)
[2020-10-14 07:33] LABS: Anion Gap 9.9 mmol/L (3-11); BUN 24 mg/dL (7-18); CO2 27.1 mmol/L (21.0-32.0); Calcium 8.5 mg/dL (8.5-10.1); Chloride 102 mmol/L (98-107); Estimated GFR 53.21 (mL/min/1.73m2); Glucose 118 mg/dL (74-106); Potassium 3.3 mmol/L (3.5-5.1); Sodium 139 mmol/L (136-145)
--- NOTE | 2020-10-14 08:00 | RT.EKG_ITS ---
APPROVED REPORT Exam: Resting ECG Patient Location: I HR:78 bpm ECG Measurements Heart Rate 78 AXIS VA 168 P 58 QRSd 91 QRS 88 QT 392 T 61 QTc 446 Conclusion Sinus rhythm...normal P axis, V-rate 60- 99 Normal Electrocardiogram
[2020-10-14] MEDS: Clopidogrel 75 MG TAB PO (08:22)
[2020-10-14] MEDS: hydroCHLOROthiazide 12.5 MG TAB PO (08:22)
[2020-10-14] MEDS: Losartan 50 MG TAB 100 MG PO (08:22)
[2020-10-14] MEDS: Aspirin 325 MG TAB PO (08:22)
[2020-10-14] MEDS: Potassium Chloride 20 MEQ TABCR 40 MEQ PO (08:22)
[2020-10-14] MEDS: Atorvastatin 40 MG TAB PO (08:22)
[2020-10-14] MEDS: Sertraline 50 MG TAB PO (08:23)
--- NOTE | 2020-10-14 08:23 | W.PM.PROGNOT ---
Subjective Subjective Interval history since last seen: Disoriented overnight (h/o dementia, ?baseline; easily reorients). 92-95% on 2L, 70-80s sinus, brief episode self-limited SVT, more frequent toward the am. BP 140s-150s/70s. No CP overnight. 900 cc uop overnight. Objective Last Vital Signs Temp 36 C L 10/14/20 07:08 Pulse 85 10/14/20 07:08 Resp 26 H 10/14/20 07:00 BP 149/90 H 10/14/20 06:00 Pulse Ox 95 10/14/20 07:08 Laboratory Results - last 24 hr 10/13/20 10/13/20 10/13/20 12:30 12:30 12:30 WBC 10.68 RBC 4.40 Hgb 12.5 Hct 38.0 MCV 86.4 MCH 28.4 MCHC 32.9 RDW 14.6 Plt Count 296 MPV 10.6 Immature Gran % 0.5 Neutrophils % 74.9 Lymphocytes % 11.5 Monocytes % 9.7 Eosinophils % 2.7 Basophils % 0.7 Nucleated RBC % 0 Absolute Neutrophils 8.00 H Absolute Lymphocytes 1.23 Absolute Monocytes 1.04 H Absolute Eosinophils 0.29 Absolute Basophils 0.07 PT 11.6 H INR 1.2 H APTT 23.6 Sodium 140 Potassium 2.4 L* Chloride 99 Carbon Dioxide 29.2 Anion Gap 11.8 H BUN 31 H Creatinine 1.3 H Estimated GFR/1.73 m2 39.31 Glucose 140 H Calcium 8.6 Magnesium 1.7 L Total Bilirubin 0.5 AST 33 ALT 26 Alkaline Phosphatase 68 Troponin I 0.09 H* Total Protein 7.9 Albumin 2.7 L Urine Color Urine Clarity Urine pH Ur Specific [place] Urine Protein Urine Ketones Urine Blood Urine Nitrite Urine Bilirubin Urine Urobilinogen Ur Leukocyte Esterase Urine RBC Urine WBC Ur Epithelial Cells Urine Crystals Urine Bacteria Urine Casts Urine Mucus Urine Other Ur Culture Indicated? Urine Glucose COVID-19 Source SARS-CoV-2 (PCR) 10/13/20 10/13/20 10/13/20 14:25 15:35 18:30 WBC RBC Hgb Hct MCV MCH MCHC RDW Plt Count MPV Immature Gran % Neutrophils % Lymphocytes % Monocytes % Eosinophils % Basophils % Nucleated RBC % Absolute Neutrophils Absolute Lymphocytes Absolute Monocytes Absolute Eosinophils Absolute Basophils PT INR APTT Sodium Potassium Chloride Carbon Dioxide Anion Gap BUN Creatinine Estimated GFR/1.73 m2 Glucose Calcium Magnesium Total Bilirubin AST ALT Alkaline Phosphatase Troponin I 0.10 H* Total Protein Albumin Urine Color Yellow Urine Clarity Clear Urine pH 7.0 Ur Specific [place] 1.015 Urine Protein Negative Urine Ketones Negative Urine Blood Trace-intact H Urine Nitrite Negative Urine Bilirubin Negative Urine Urobilinogen 0.2 Ur Leukocyte Esterase Negative Urine RBC 3-5 H Urine WBC 20-50 H Ur Epithelial Cells Few Urine Crystals Negative Urine Bacteria Few Urine Casts Negative Urine Mucus Negative Urine Other Few transitional Ur Culture Indicated? Yes Urine Glucose Negative COVID-19 Source Nasal/nares SARS-CoV-2 (PCR) Negative 10/13/20 10/13/20 10/14/20 20:27 20:27 02:45 WBC RBC Hgb Hct MCV MCH MCHC RDW Plt Count MPV Immature Gran % Neutrophils % Lymphocytes % Monocytes % Eosinophils % Basophils % Nucleated RBC % Absolute Neutrophils Absolute Lymphocytes Absolute Monocytes Absolute Eosinophils Absolute Basophils PT INR APTT 63.9 H Sodium Potassium 2.8 L* Chloride Carbon Dioxide Anion Gap BUN Creatinine Estimated GFR/1.73 m2 Glucose Calcium Magnesium Total Bilirubin AST ALT Alkaline Phosphatase Troponin I 0.20 H* Total Protein Albumin Urine Color Urine Clarity Urine pH Ur Specific [place] Urine Protein Urine Ketones Urine Blood Urine Nitrite Urine Bilirubin Urine Urobilinogen Ur Leukocyte Esterase Urine RBC Urine WBC Ur Epithelial Cells Urine Crystals Urine Bacteria Urine Casts Urine Mucus Urine Other Ur Culture Indicated? Urine Glucose COVID-19 Source SARS-CoV-2 (PCR) 10/14/20 10/14/20 06:37 06:37 WBC RBC Hgb Hct MCV MCH MCHC RDW Plt Count MPV Immature Gran % Neutrophils % Lymphocytes % Monocytes % Eosinophils % Basophils % Nucleated RBC % Absolute Neutrophils Absolute Lymphocytes Absolute Monocytes Absolute Eosinophils Absolute Basophils PT INR APTT Sodium 139 Potassium 3.3 L Chloride 102 Carbon Dioxide 27.1 Anion Gap 9.9 BUN 24 H Creatinine 1.0 Estimated GFR/1.73 m2 53.21 Glucose 118 H Calcium 8.5 Magnesium Total Bilirubin AST ALT Alkaline Phosphatase Troponin I 0.11 H* Total Protein Albumin Urine Color Urine Clarity Urine pH Ur Specific [place] Urine Protein Urine Ketones Urine Blood Urine Nitrite Urine Bilirubin Urine Urobilinogen Ur Leukocyte Esterase Urine RBC Urine WBC Ur Epithelial Cells Urine Crystals Urine Bacteria Urine Casts Urine Mucus Urine Other Ur Culture Indicated? Urine Glucose COVID-19 Source SARS-CoV-2 (PCR)
[2020-10-14 09:29] LABS: Magnesium 1.8 mg/dL (1.8-2.4); NT-proBNP 1966 pg/mL (<300)
[2020-10-14 09:45] LABS: Calculated LDL 25 mg/dL (<100); Cholesterol 85 mg/dL (<200); HDL Cholesterol 41 mg/dL (40-60); Triglyceride 95 mg/dL (<150)
[2020-10-14 09:54] LABS: PTT Activated 60.2 sec (21.0-27.5)
--- NOTE | 2020-10-14 10:17 | PDOC.CMIN ---
- If Service Date Differs Date of service: 10/14/20 Time of Service: 10:17 Care Management Initial Assess REASON FOR HOSPITALIZATION:: NSTEMI PAST MEDICAL HISTORY/PAST SURGICAL HISTORY:: Medical History . Abnormal mammogram with microcalcification (06/07/17). 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 Breast cancer. right breast 01/1998. Ductal carcinoma of right breast (08/05/17). Dr. Hsu 07/14/17 + for estrogen receptors, + fopr progesterone recpetors RH. [place] cardiac risk >20% in next 10 years. Greater trochanteric bursitis of right hip. Herpes zoster (10/17/13). Hypertension. Osteoporosis. Rhytidosis facialis. Skin neoplasm. Venous insufficiency. Surgical History . breast lumptectomy (~1997). Breast, Mastectomy Bilateral (07/14/17). Colonoscopy - IV Sedation (01/28/14). Extraction of cataract (12/05/17). cataract extraction right eye w/ lens implant. Dr. Goodwin. 12/05/17 Dr. Goodwin Left eye cataract extraction w lens implant RH. Revision, Scar (09/22/17). left mastectomy scar revision PREVIOUS FUNCTIONAL STATUS/SOCIAL/FAMILY SUPPORTS:: Veronica lives in an apartment in [facility]. CURRENT FUNCTIONAL STATUS:: Veronica has moderate to severe dementai per provider and Cm was unable to efffectively converse with her. She is being prepared for transfer to [facility]. ADVANCE DIRECTIVES:: none on file Has patient been provided with info about the portal/API?: Yes Did the patient sign up for the portal?: Yes (previously) CODE STATUS:: DNR/DNI INSURANCE COVERAGE / FINANCIAL ISSUES:: Medicare. [employer] PRIMARY CARE PHYSICIAN:: Ibeth Shelton POTENTIAL DISCHARGE NEEDS:: Follow up with cardiology, PCP and plan of care PATIENT/FAMILY EDUCATION NEEDS:: Discharge plan, limitations, follow up plan, Ask Me Three ANTICIPATED BARRIERS TO DISCHARGE:: bed availability TRANSPORTATION:: via ambulance to [facility] coordinated by nursing supervisor spinning. PLAN:: Veronica is being transferred to [facility] for treatment of an NSTEMI. She will transport via ambulance through [facility] coordinated by nursing supervisor spinning.
[2020-10-14] MEDS: MAGNESIUM SULFATE 2 GM/50 ML BAG IVPB (11:48)
[2020-10-14] MEDS: Metoprolol 12.5 MG TAB PO (12:36)
--- NOTE | 2020-10-14 12:55 | DSE_ITS ---
Date of service: 10/14/20 Time of Service: 12:55 DS: Diagnosis Discharge Diagnosis (1) NSTEMI (non-ST elevated myocardial infarction): Status: Acute (2) Moderate to severe pulmonary hypertension: Status: Acute (3) Nonsustained paroxysmal supraventricular tachycardia: Status: Acute (4) Right ventricular mass: Status: Suspected Asessment and Plan: On transthoracic echo, in parasternal views; may be related to lung mass. (5) Choking episode: Status: Acute (6) UTI (urinary tract infection): Status: Acute Asessment and Plan: mixed mary; on empiric ceftriaxone (7) Mass of right lung: Status: Acute (8) Hypokalemia: Status: Acute (9) Hypomagnesemia: Status: Acute (10) Prediabetes: Status: Chronic Asessment and Plan: A1C 6.0 (11) Essential hypertension: Status: Chronic (12) Vascular dementia with depressed mood: Status: Chronic Asessment and Plan: A&Ox3 (did not know exact date in October) during the day on 10/14/20. (13) COVID-19 ruled out by laboratory testing: Status: Ruled-out Discharge Plan Disposition Patient Disposition: [facility] Condition: Stable Discharge Details Reason For Visit: NSTEMI, UTI, LUNG MASS Admit Date/Time: 10/14/20 09:15 Admit Provider: Placido Walsh Attending Provider: Placido Walsh Primary Care Provider: Ibeth Shelton Hospital Course Hospital Course: Ms Rodgers is an 80 year old female with PMHx of hypertension, hyperlipidemia, prediabetes, anxiety/depression, and PMHx of breast ca s/p B mastectomies, who was a patient in [facility] ICU on hospitalist service from 10/13/20 until 10/14/20 for NSTEMI. The patient had presented to the ED with dizziness and fall when she stood up. In the ED, workup was consistent with ST depression in anterior and inferior leads, low potassium and magnesium, and Troponin level of 0.09. [facility] had no beds available for transfer for NSTEMI. [facility] accepted the patient in transfer (Dr Martinez accepting). The patient was loaded with 600 mg of plavix PO followed by heparin bolus. Heparin drip was initiated as the transfer was delayed due to lack of beds. Troponin trajectory has been 0.09 ->0.10 ->0.20 - >0.11. The patient was noted to have short paroxysms of SVT of which she was relatively asymptomatic. These were self-limited. Low dose metoprolol was initiated. Echocardiogram was done showing a possible right ventricular mass, although this could not be clearly confirmed and it could have been an artifact of the patient's right lung mass. She does have evidence of moderate to severe pulmonary hypertension with RVSP of 65 mmHg, no evidence of RV strain or dysfunction. Her LVEF is 55-60%, and no segmental wall motion abnormalities were seen. During her ICU course, the patient did have one choking spell while eating lunch. CXR was ordered, but not yet done. Speech therapy evaluation is recommended. For her pyuria (and question of UTI), she was initiated on empiric ceftriaxone; cultures are mixed. The patient was evaluated by palliative care, who felt the patient was A&Ox1 and may not be safe to go back to independent living. Patient is in agreement with transfer and is stable for transfer. Care for patient as well as completion of her discharge summary took 1 hr on the day of transfer. For list of inpatient medications, please see MAR. Home Meds and New Rx's Prescriptions: No Action sertraline 50 mg tablet 50 mg PO DAILY Qty: 90 RF: 3 sertraline 25 mg tablet 25 mg PO DAILY Qty: 90 RF: 3 mirtazapine 15 mg tablet 15 mg PO HS PRN (Reason: depression) Qty: 90 RF: 3 calcium carbonate [Tums Ultra] 400 MG tablet,chewable 400 mg PO TID RF: 0 multivitamin [Daily Vitamin] 1 EACH tablet 1 ea PO DAILY RF: 0 hydrochlorothiazide 12.5 mg tablet 12.5 mg PO DAILY Qty: 90 RF: 3 losartan 100 mg tablet 100 mg PO DAILY Qty: 90 RF: 3 atorvastatin 40 mg tablet 40 mg PO DAILY Qty: 90 RF: 3 Discharge Instructions Activity:: OOB to chair Equipment/Supplies:: No Equipment Needed Diet:: pureed. Discharge Orders Discharge Orders: Discharge Order (Routine); Ordered 10/14/20 Ordered By: Ria Castro DS: Summary Time Spent with Patient providing and/or coordinating discharge services: Greater than 30 minutes Status at Discharge Functional status at discharge: uses cane/walker Overall status at discharge: patient is not back to baseline Mental Status: mental status grossly normal Speech and Movement: speech and movement normal Mood: congruent mood Affect: normal affect Exam Narrative Exam Narrative: General: pleasant elderly female, A&Ox3 (did not know exact day in October), coughing having just had her choking spell HEENT: EOMI,MMM Heart: RRR, tachycardic Lungs: CTAB Abdomen: soft, nontender, nondistended Extremities: no edema BLE's Psych Mental Status: mental status grossly normal Speech and Movement: speech and movement normal Mood: congruent mood Affect: normal affect DS: Data Vitals/I&O Vitals and I&O: Vital Signs Temperature 36 C L 10/14/20 07:08 Temperature Source Temporal Artery Scan 10/14/20 07:08 Pulse 85 10/14/20 07:08 Pulse 123 H 10/14/20 07:00 Respiratory Rate 26 H 10/14/20 07:00 Respiratory Effort 10/14/20 07:08 Respiratory Depth Normal 10/14/20 07:08 Respiratory Pattern Normal 10/14/20 07:08 Blood Pressure 149/90 H 10/14/20 06:00 Blood Pressure Mean 102 10/14/20 06:00 Blood Pressure Position Supine 10/14/20 07:08 Pulse Oximetry 95 10/14/20 07:08 Oxygen Delivery Method Nasal Cannula 10/14/20 07:08 Oxygen Flow Rate 2 10/14/20 07:08 Pain Level 0 10/14/20 07:08 Intake & Output 10/13/20 10/14/20 10/14/20 23:59 11:59 23:59 Intake Total 950 / 950 306.116 / 306.116 Output Total 925 / 925 Balance 950 / 950 -618.884 / -618.884 Weight 73.8 kg 72.6 kg Intake: IV 950 / 950 306.116 / 306.116 Output: Urine 925 / 925 Other: Urine Color Yellow Yellow Urine Appearance Clear Urine Odor Normal Comment urine occurance x1 Voiding Methods Bedside Commode Data Completed and Pending Completed studies during hospitalization [Text1]: CTA Chest: 1. No evidence of acute pulmonary emboli., there is a large right upper lobe masses described above measuring 7.8 x 4.6 x 4.6 centimeters extending from the hilum towards the anterior chest wall. Neoplastic until proven otherwise. 2. Other lung findings as above including nodular densities bilaterally, possibly metastatic. There are no pleural effusions. 3. Abdominal findings as above. CT head w/o contrast: Chronic small-vessel white matter ischemic changes. Right-sided lacunar infarct as described above. If clinically indicated follow- up MRI with diffusion imaging can be performed. Echo; Normal left ventricular wall thickness and chamber size. Estimated ejection fraction is 55 to 60%. There are no segmental wall motion abnormalities Right ventricle appears normal in size. In parasternal views there is a possible mass noted in the right ventricle. This is not seen in the apical views and may be artifact related to the patient's known lung mass. Right ventricular systolic function appears normal The left atrium is not well visualized. The right atrium is normal in size Trileaflet aortic valve with trace regurgitation Mild mitral annular calcification, mild mitral regurgitation Normal tricuspid valve with moderate regurgitation. Estimated right ventricular systolic pressure is 65 mmHg, moderate to severe pulmonary hypertension Normal pulmonic valve with trace regurgitation Labs on day of discharge: Labs from last 24 hours 10/14/20 10/14/20 10/14/20 09:05 06:37 06:37 APTT 60.2 H Sodium 139 Potassium 3.3 L Chloride 102 Carbon Dioxide 27.1 Anion Gap 9.9 BUN 24 H Creatinine 1.0 Estimated GFR/1.73 m2 53.21 Glucose 118 H Hemoglobin A1c 6.0 H Calcium 8.5 Magnesium 1.8 Total Bilirubin AST ALT Alkaline Phosphatase Troponin I NT-Pro-B Natriuret Pep 1966 H Total Protein Albumin Triglycerides 95 Total Cholesterol 85 LDL Cholesterol, Calc 25 HDL Cholesterol 41 Urine Color Urine Clarity Urine pH Ur Specific [place] Urine Protein Urine Ketones Urine Blood Urine Nitrite Urine Bilirubin Urine Urobilinogen Ur Leukocyte Esterase Urine RBC Urine WBC Ur Epithelial Cells Urine Crystals Urine Bacteria Urine Casts Urine Mucus Urine Other Ur Culture Indicated? Urine Glucose COVID-19 Source SARS-CoV-2 (PCR) 10/14/20 10/14/20 10/13/20 06:37 02:45 20:27 APTT 63.9 H Sodium Potassium 2.8 L* Chloride Carbon Dioxide Anion Gap BUN Creatinine Estimated GFR/1.73 m2 Glucose Hemoglobin A1c Calcium Magnesium Total Bilirubin AST ALT Alkaline Phosphatase Troponin I 0.11 H* NT-Pro-B Natriuret Pep Total Protein Albumin Triglycerides Total Cholesterol LDL Cholesterol, Calc HDL Cholesterol Urine Color Urine Clarity Urine pH Ur Specific [place] Urine Protein Urine Ketones Urine Blood Urine Nitrite Urine Bilirubin Urine Urobilinogen Ur Leukocyte Esterase Urine RBC Urine WBC Ur Epithelial Cells Urine Crystals Urine Bacteria Urine Casts Urine Mucus Urine Other Ur Culture Indicated? Urine Glucose COVID-19 Source SARS-CoV-2 (PCR) 10/13/20 10/13/20 10/13/20 20:27 18:30 15:35 APTT Sodium Potassium Chloride Carbon Dioxide Anion Gap BUN Creatinine Estimated GFR/1.73 m2 Glucose Hemoglobin A1c Calcium Magnesium Total Bilirubin AST ALT Alkaline Phosphatase Troponin I 0.20 H* 0.10 H* NT-Pro-B Natriuret Pep Total Protein Albumin Triglycerides Total Cholesterol LDL Cholesterol, Calc HDL Cholesterol Urine Color Urine Clarity Urine pH Ur Specific [place] Urine Protein Urine Ketones Urine Blood Urine Nitrite Urine Bilirubin Urine Urobilinogen Ur Leukocyte Esterase Urine RBC Urine WBC Ur Epithelial Cells Urine Crystals Urine Bacteria Urine Casts Urine Mucus Urine Other Ur Culture Indicated? Urine Glucose COVID-19 Source Nasal/nares SARS-CoV-2 (PCR) Negative 10/13/20 10/13/20 14:25 12:30 APTT Sodium 140 Potassium 2.4 L* Chloride 99 Carbon Dioxide 29.2 Anion Gap 11.8 H BUN 31 H Creatinine 1.3 H Estimated GFR/1.73 m2 39.31 Glucose 140 H Hemoglobin A1c Calcium 8.6 Magnesium 1.7 L Total Bilirubin 0.5 AST 33 ALT 26 Alkaline Phosphatase 68 Troponin I 0.09 H* NT-Pro-B Natriuret Pep Total Protein 7.9 Albumin 2.7 L Triglycerides Total Cholesterol LDL Cholesterol, Calc HDL Cholesterol Urine Color Yellow Urine Clarity Clear Urine pH 7.0 Ur Specific [place] 1.015 Urine Protein Negative Urine Ketones Negative Urine Blood Trace-intact H Urine Nitrite Negative Urine Bilirubin Negative Urine Urobilinogen 0.2 Ur Leukocyte Esterase Negative Urine RBC 3-5 H Urine WBC 20-50 H Ur Epithelial Cells Few Urine Crystals Negative Urine Bacteria Few Urine Casts Negative Urine Mucus Negative Urine Other Few transitional Ur Culture Indicated? 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 Hsu 07/14/17 + for estrogen receptors, + fopr progesterone recpetors RH [place] cardiac risk >20% in next 10 years Greater trochanteric bursitis of right hip Herpes zoster (10/17/13) Hypertension Osteoporosis Rhytidosis facialis Skin neoplasm Venous insufficiency Surgical History breast lumptectomy () Breast, Mastectomy Bilateral (07/14/17) Colonoscopy - IV Sedation (01/28/14) Extraction of cataract (12/05/17) cataract extraction right eye w/ lens implant. Dr. Goodwin. 12/05/17 Dr. Goodwin Left eye cataract extraction w lens implant RH Revision, Scar (09/22/17) left mastectomy scar revision Family History Mother , CHF Diabetes Heart disease Stroke Father , suicide at age 42. No problems noted. Sister Diabetes Heart disease Sister , hepatic cancer Hepatic cancer Diabetes Sister Diabetes Essential hypertension Heart disease Hyperlipidemia Sister Stroke Sister No problems noted. Brother No problems noted. 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
--- NOTE | 2020-10-14 14:38 | CHAPLAIN ---
Veronica was sitting up in bed when I visited. Her daughter in law was with her. I explained my role and offered support. Veronica said she was being transported to [facility]. She declined my offer for a prayer shawl and told me to keep for an elderly person. Veronica moved into the [facility] recently. She is from [place], but has lived in [facility] a long time now.
--- NOTE | 2020-10-14 19:40 | W.PALLCONSUL ---
Date of service: 10/14/20 Time of Service: 12:00 History of Present Illness History of Present Illness Chief Complaint: new dx lung mass, weight loss, fatigue, dementia Narrative: Veronica is a frail chronically ill woman, seen recently for unexplained weight loss and fatigue by her PCP, who presented to ER after falling at home. Her imaging done in the ER revealed a large unexpected lung mass. She has a distant history of breast cancer and is s/p bilateral mastectomies. She used to smoke 1-2 ppd x 50 years, she thinks. She is a very vague historian. She knows she was still working when she underwent radiation for her breast cancer; she thinks she must have been in her 50s. She thinks she quit smoking about 15 years ago. She's originally from [place], [place]. She still has half-sisters and one full sister living there. (She cannot tell me this, but her last PCP note reveals this.) She tells me she just moved into [facility] on . (Unclear if this is true). She also tells me her sister Melissa 3 years ago from COVID-19. She tells me the doctors said she should go to [place]. She says she is willing. IF they tell me I have to take cancer treatment again, I guess I should. She denies any coughing or shortness of breath. She says she feels weak. She says she sleeps all the time. She is not in pain. The decision to transfer her to [facility] had already been made prior to my visit; of note, her PCP said her sisters were trying to move her to the [place] of the [facility]. [facility] is much closer to her sisters. She does have a son and [id number] who live in [place], [place] and who try to come see Veronica regularly. She cannot tell me how often they come. I was unable to reach them at the time of my visit. Consults Consult date: 10/14/20 Requesting physician: Ria Castro Assessment and Plan Assessment and plan (1) Palliative care patient: Status: Acute Assessment and plan: Should be followed by Pall Care at [facility]. Not clear what her goals of care are. Needs input from family. Unlikely that she will be able to live independently again any time soon. (2) Mass of right lung: Status: Acute Assessment and plan: Could be new primary lung cancer or recurrence of her breast cancer. She says she wants to know what kind of cancer she has and if the doctors tell her she should get treatment, she will. (3) Vascular dementia with depressed mood: Status: Chronic Assessment and plan: Doesn't seem depressed, but flat, blunted, due to her dementia. (4) Cognitive deficits: Status: Chronic Assessment and plan: Quite notable. I am not sure who her Health Care Agent is; should be determined NATHAN, as I do not think she can make medical decisions on her own at this time. (5) Unintended weight loss: Status: Acute Assessment and plan: Her PCP has been concerned about this and noted it in her last visit. Estimated weight loss is about 20 lbs over last 6 mos. (6) Moderate to severe pulmonary hypertension: Status: Acute (7) Fatigue: Status: Acute Assessment and plan: Veronica says she sleeps all the time. Sleeping more than she is awake. (8) History of smoking 25-50 pack years: Status: Chronic Assessment and plan: She says she started smoking at 14 and smoked for 50 years or more, 1-2 ppd. (9) Poor historian: Status: Chronic Assessment and plan: Unfortunately, I could not reach family to corroborate her history. I also cannot tell how much of this is chronic, and how much of this is due to her current hospitalization. Will need to be sorted out once she is stable. Expect she will end up not returning to this area. Will not likely be able to live at [facility] again. Review of Systems Constitutional Constitutional: Reports daytime sleepiness, Reports fatigue, Reports frequent falls, Reports lethargy, Reports poor appetite, Reports weakness and Reports weight loss Eyes Eyes: Reports requires corrective lenses ENT Ears, Nose, Mouth, and Throat: Reports disequilibrium Cardiovascular Cardiovascular: Reports dyspnea on exertion Respiratory Respiratory: Denies cough, Denies hemoptysis and Reports dyspnea on exertion Gastrointestinal Gastrointestinal: Reports early satiety Genitourinary Genitourinary: Reports urinary incontinence Musculoskeletal Musculoskeletal: Reports muscle weakness Integumentary/Breasts Skin/Breast: Reports change in breast shape Neurologic Neurologic: Reports abnormal speech, Reports confusion, Reports frequent falls, Reports memory loss, Reports disequilibrium and Reports weakness Psychiatric Psychiatric: Reports confusion, Reports difficulty concentrating, Reports anhedonia and Reports memory loss Endocrine Endocrine: Reports fatigue [facility] Medical History (Updated 10/14/20 @ 21:09 by Alissa Desai MD) Abnormal mammogram with microcalcification (06/07/17) 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 Hsu 07/14/17 + for estrogen receptors, + fopr progesterone recpetors RH Fatigue [place] cardiac risk >20% in next 10 years Greater trochanteric bursitis of right hip Herpes zoster (10/17/13) History of smoking 25-50 pack years Hypertension Osteoporosis Palliative care patient Poor historian Rhytidosis facialis Skin neoplasm Venous insufficiency Surgical History breast lumptectomy (~1997) Breast, Mastectomy Bilateral (07/14/17) Colonoscopy - IV Sedation (01/28/14) Extraction of cataract (12/05/17) cataract extraction right eye w/ lens implant. Dr. Goodwin. 12/05/17 Dr. Goodwin Left eye cataract extraction w lens implant RH Revision, Scar (09/22/17) left mastectomy scar revision Family History (Updated 10/14/20 @ 20:55 by Alissa Desai MD) Mother , CHF Diabetes Heart disease Stroke Sister Diabetes Heart disease Sister , hepatic cancer Hepatic cancer Diabetes Sister Diabetes Essential hypertension Heart disease Hyperlipidemia Sister Stroke Son No problems noted. Daughter No problems noted. 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[employer]; 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 [employer] Pets and animals: No Current gender identity: female What is your relationship status?: How often do you talk on the phone with friends or family?: three or more times per week Panel score (0-1 are the most socially isolated patients): 1 What type of physical activity do you participate in: none and sedentary lifestyle Seatbelt use: always Drive intox or ride w/intox roll off driver: No Working smoke detector in home: Yes Carbon monox detector in home: Yes Do you feel safe at home: Yes Do you feel safe in your relationship?: Yes Additional Social history: By her address, she lives at [facility], [facility]. She told me she just moved in there, but this is not accurate. Dr Shelton, her PCP, reported family has been discussing moving Veronica back to [place], [place], where she grew up; she has siblings still living there. She cannot tell me any of this. She did tell me she used to live with her late Johnny in [place]. Her daughter is from a different relationship; she had her son with Johnny when she was in her early 40s. (? accuracy) Exam Const General: cooperative and no acute distress HENMT Head: normal to inspection Ears: hearing grossly normal bilaterally, external ears normal and TM's normal bilaterally Face and sinus: normal facial exam Mouth: moist mucous membranes Eyes General: appearance normal, both eyes and all related structures Pupils: PERRL EOM: EOM intact bilaterally Neck Neck: normal visual inspection Lymphatic: no lymphadenopathy noted Chest Chest: no tenderness Breast inspection: abnormal inspection of the breast (bilateral mastectomies) Resp Effort & Inspection: normal respiratory effort and able to speak in complete sentences Auscultation: clear to auscultation bilaterally Cardio Rate: regular rate Rhythm: regular rhythm GI Inspection: normal to inspection Palpation: soft, not firm, not rigid and nontender Auscultation: normal bowel sounds Back/Spine/Pelvis Cervical Spine: No cervical spinal tenderness Skin General skin exam: no rashes or lesions noted, dry skin and scars (chest, from her mastectomies) Neuro General: patient alert, patient awake, oriented (thought we were in [place]; thought it was ) Patient Orientation: Person and Confused, moves all extremities and no focal motor deficits Cognition: abnormal cognition (very vague historian; cannot tell me where she lives) Speech: anomia Sensory Exam: no sensory deficits noted Extrem General: normal to inspection, full ROM, capillary refill normal, no calf tenderness bilaterally and no edema Psych Appearance: grossly normal Mental Status: mental status grossly normal Affect: normal affect Results Last Vital Signs Temp 97.9 F 10/14/20 11:00 Pulse 75 10/14/20 14:35 Resp 26 H 10/14/20 14:35 BP 118/58 L 10/14/20 14:35 Pulse Ox 92 10/14/20 14:35 Labs Result diagrams: 10/13/20 12:30 10/14/20 06:37 Labs: Laboratory Results - last 24 hr 10/13/20 10/13/20 10/13/20 18:30 20:27 20:27 APTT Sodium Potassium 2.8 L* Chloride Carbon Dioxide Anion Gap BUN Creatinine Estimated GFR/1.73 m2 Glucose Hemoglobin A1c Calcium Magnesium Troponin I 0.20 H* NT-Pro-B Natriuret Pep Triglycerides Total Cholesterol LDL Cholesterol, Calc HDL Cholesterol COVID-19 Source Nasal/nares SARS-CoV-2 (PCR) Negative 10/14/20 10/14/20 10/14/20 02:45 06:37 06:37 APTT 63.9 H Sodium 139 Potassium 3.3 L Chloride 102 Carbon Dioxide 27.1 Anion Gap 9.9 BUN 24 H Creatinine 1.0 Estimated GFR/1.73 m2 53.21 Glucose 118 H Hemoglobin A1c Calcium 8.5 Magnesium 1.8 Troponin I 0.11 H* NT-Pro-B Natriuret Pep 1966 H Triglycerides 95 Total Cholesterol 85 LDL Cholesterol, Calc 25 HDL Cholesterol 41 COVID-19 Source SARS-CoV-2 (PCR) 10/14/20 10/14/20 06:37 09:05 APTT 60.2 H Sodium Potassium Chloride Carbon Dioxide Anion Gap BUN Creatinine Estimated GFR/1.73 m2 Glucose Hemoglobin A1c 6.0 H Calcium Magnesium Troponin I NT-Pro-B Natriuret Pep Triglycerides Total Cholesterol LDL Cholesterol, Calc HDL Cholesterol COVID-19 Source SARS-CoV-2 (PCR)
== END 2020-10-14 14:45 | DRG 281 ==
LOC: ER 19:42 → ICU 19:45
PROVIDERS: Student in an Organized Health Care Education/Training Program; Admitting Provider General Practice; Emergency Provider Physician Assistant; PCP Internal Medicine; Visit Provider General Practice
DX: I21.4 Non-ST elevation (NSTEMI) myocardial infarction (principal); C34.91 Malignant neoplasm of unspecified part of right bronchus or lung; I47.1 Supraventricular tachycardia; N39.0 Urinary tract infection, site not specified; Z87.891 Personal history of nicotine dependence; W19.XXXA Unspecified fall, initial encounter; E87.6 Hypokalemia; E83.42 Hypomagnesemia; Z85.3 Personal history of malignant neoplasm of breast; I10 Essential (primary) hypertension; M81.0 Age-related osteoporosis without current pathological fracture; I87.2 Venous insufficiency (chronic) (peripheral); L98.8 Other specified disorders of the skin and subcutaneous tissue; I27.20 Pulmonary hypertension, unspecified; F01.50 Vascular dementia, unspecified severity, without behavioral disturbance, psychotic disturbance, mood disturbance, and anxiety; Z20.822 Contact with and (suspected) exposure to COVID-19; F06.31 Mood disorder due to known physiological condition with depressive features; R73.03 Prediabetes; I51.9 Heart disease, unspecified
CPT/HCPCS: 36415; 71275; 80048; 80053; 80061; 87635; 93005; 93306; 96361; 96365; 96366; 96368; 99222; 99239; 99255; 99285; 70450; 71045; 81003; 81015; 83036; 83735; 83880; 84132; 84484; 85025; 85610; 85730; 87086; 93010; J0696; J1644; J3475; J3480; J3490